=== PATIENT | female | born 1975 | race Caucasian/White ===

== ENCOUNTER 2018-12-04 06:43 | Day surgery (SDC) | payer OTHER ==
[~2018-12-04] VITALS: Ht 162.6 cm; Wt 63.0 kg
[~2018-12-04 06:43] MED LIST: CALC600T7 PO; MAGN250T7 PO; MULTTAB PO; NS 1,000 ML IV ONE; VITA-122 PO; VITA10006 PO
[2018-12-04] MEDS ORDERED: SIMETHICONE 40MG/0.6ML DROPS 30ML As Ordered ONE (07:03)
[2018-12-04] MEDS ORDERED: LIDOCAINE 2% INJ 100 MG/5 ML SDV (FOR ANES.) As Ordered ONE (07:40)
[2018-12-04] MEDS ORDERED: PROPOFOL 500 MG/50 ML VIAL As Ordered ONE (07:40)
--- NOTE | 2018-12-04 08:01 | ROOR ---
Patient Name: Hilaria Robbins Procedure Date: 12/04/2018 7:33 AM Date of : 1975 Age: 43 Room: [facility] Gender: Female Note Status: Finalized Procedure: Colonoscopy Indications: Suspected irritable bowel syndrome, Irritable bowel syndrome with constipation, Change in bowel habits Providers: Kevin SUAZO MD Referring MD: Nasra CABRERA NP Requesting Provider: Medicines: Monitored Anesthesia Care Complications: No immediate complications. Procedure: Pre-Anesthesia Assessment: - The heart rate, respiratory rate, oxygen saturations, blood pressure, adequacy of pulmonary ventilation, and response to care were monitored throughout the procedure. The Colonoscope was introduced through the anus and advanced to 10 cm into the ileum. The colonoscopy was performed without difficulty. The patient tolerated the procedure well. The quality of the bowel preparation was excellent. Findings: The perianal and digital rectal examinations were normal. Small Internal Hemorrhoids. The colon (entire examined portion) was moderately redundant. The entire colon appeared normal on direct and retroflexion views. The terminal ileum appeared normal. Retroflexion in the right colon was performed. Impression: - Small Internal Hemorrhoids. - Redundant colon. - The entire colon is otherwise normal on direct and retroflexion views. - The terminal ileum was normal. - No specimens collected. Recommendation: You have a long/redundant colon with poor muscle tone. You may or may not have poor emptying symptoms. For symptoms of incomplete emptying, you probably would do best with a stimulating laxative. - Try Senokot-S 1-2 tablets PO q HS PRN. - Or consider Dulcolax suppository per rectum PRN. Kevin Suazo MD Kevin SUAZO MD 12/04/2018 8:01:07 AM This report has been signed electronically. Number of Addenda: 0 Note Initiated On: 12/04/2018 7:33 AM Estimated Blood Loss: Estimated blood loss: none.
[2018-12-04 08:15] VITALS: BP 100/60
== END 2018-12-04 08:33 | disposition home or self-care (01) ==
LOC: M OPP 06:43
PROVIDERS: ATTEND Internal Medicine Gastroenterology
DX: K58.1 Irritable bowel syndrome with constipation (principal); Q43.8 Other specified congenital malformations of intestine; R19.4 Change in bowel habit; K64.8 Other hemorrhoids; Z79.899 Other long term (current) drug therapy; Z88.8 Allergy status to other drugs, medicaments and biological substances